=== PATIENT | male | born 1955 | race Caucasian/White ===

== ENCOUNTER → 2017-08-15 | Outpatient (CLI) | payer BC ==
[~2017-08-15] MED LIST: ALLO100T PO; APIX2.5T PO; ATOR20TA PO; BYST10TA2 PO; LISI-357 PO; NORC7.5T PO; PERI8.6T PO; SAXA5TAB2 PO; Z.0.COMMODE-3:1; Z.0.CPM; Z.0.WALKERFRONT
--- NOTE | 2017-08-18 11:01 | CARDEX ---
CARDIOPULMONARY EXERCISE REPORT Mr. Khoury performed a maximal pulmonary stress test utilizing a step exercise protocol white monitoring several cardiopulmonary parameters including gas exchange. His overall performance and aerobic capacity were normal at 80% of predicted. He did experience shortness of breath and exhaustion. His ventilatory response was normal with O2 Saturations at 92% to 95% throughout. He had adequate ventilatory reserve at 54% and his ventilatory response, as evidenced by the VE/VCO2 breathing efficiency slope, was normal. His cardiovascular response was also normal. His blood pressure juancarlos appropriately from 130/85 to 162/83 and was back to 130/80 in recovery. He achieved 85% of his predicted maximum heart rate and gave an excellent effort as evidenced by an "R" value of 1.14. He experienced no chest pain or light-headedness. His end-tidal CO2 response, an indirect indicator of stroke volume response to exercise, was normal. IMPRESSION: In summary, Mr. Khoury's aerobic capacity is normal with no evidence of significant or pulmonary or cardiac dysfunction in he parameters monitored.
== END ==
LOC: HRSP 13:15
PROVIDERS: ATTEND Internal Medicine
DX: R06.02 Shortness of breath (principal)
CPT/HCPCS: 94621